=== PATIENT | female | born 1990 | race Caucasian/White ===

== ENCOUNTER → 2016-04-30 | Outpatient (CLI) | payer OTHER ==
[2016-04-30 12:22] LABS: HEMATOCRIT 37.4 % (37.0-47.0); HEMOGLOBIN 12.4 g/dL (12.0-16.0); MEAN CORPUSCULAR HGB CONC 33.2 g/dL (33-37); MEAN PLATELET VOLUME 9.8 FL (7.4-12.2); RDW COEFFICIENT OF VARIATION 13.7 % (11.5-14.5); RED BLOOD COUNT 4.27 10^6/uL (4.20-5.40); WHITE BLOOD COUNT 7.89 10^3/uL (4.8-10.8)
== END ==
LOC: LAB 10:49
PROVIDERS: ATTEND Obstetrics & Gynecology
DX: Z36 Encounter for antenatal screening of mother (principal); Z3A.29 29 weeks gestation of pregnancy
CPT/HCPCS: 36415; 82950; 85027

== ENCOUNTER 2016-06-02 15:43 | Outpatient (CLI) | payer OTHER ==
[2016-06-02 17:48] VITALS: RESP 20; TEMP 97.8
== END 2016-06-02 16:05 | disposition home or self-care (01) ==
LOC: OBOP 15:43
PROVIDERS: ATTEND Obstetrics & Gynecology
DX: O76 Abnormality in fetal heart rate and rhythm complicating labor and delivery (principal); Z3A.34 34 weeks gestation of pregnancy
CPT/HCPCS: 59025; 99211

== ENCOUNTER → 2016-06-12 | Outpatient (CLI) | payer OTHER | LOC: MOB LAB 16:03 | PROVIDERS: ATTEND Obstetrics & Gynecology | DX: Z36 Encounter for antenatal screening of mother (principal); Z3A.35 35 weeks gestation of pregnancy | CPT/HCPCS: 87150 ==

== ENCOUNTER 2016-07-13 15:16 | Outpatient (CLI) | payer OTHER ==
[2016-07-13] MEDS ORDERED: NORMAL SALINE 10 ML SYRINGE FLUSH IVP PRN (15:36)
[2016-07-13 15:48] VITALS: RESP 18; TEMP 98.2
--- NOTE | 2016-07-13 17:32 | DI ---
US OB , LIMITED,07/13/2016 3:39 PM: Clinical History: Decreased movement. Previous Exam: None at this facility. Findings: Multiple grayscale and color Doppler sonographic images are obtained through the pelvis, and demonstr ate a single live intrauterine gestation in vertex presentation. Amniotic fluid level is normal (14.3 cm). Detected Doppler heart tones measure 134 beats per minute. There is normal movement and stomach and urinary bladder appear normal. Impression: Single live intrauterine gestation with normal amniotic fluid index.
== END 2016-07-13 16:49 | disposition home or self-care (01) ==
LOC: OBOP 15:16
PROVIDERS: ATTEND Obstetrics & Gynecology
DX: O36.8130 Decreased fetal movements, third trimester, not applicable or unspecified (principal); Z3A.40 40 weeks gestation of pregnancy
CPT/HCPCS: 59025; 76815; 81003; 99211

== ENCOUNTER 2016-07-16 11:11 | Outpatient (CLI) | payer OTHER ==
[2016-07-16 11:48] VITALS: RESP 16; TEMP 97.5
--- NOTE | 2016-07-20 13:44 | PDOC(PROG) ---
Intake - - Reason for Visit/Chief Complaint: NST, Decreased Movement Admitted From: Home - Estimated Due Date: 07/12/16 Gestational Age in Weeks and Days: 41 Weeks and 1 Days : 3 Para: 1 Term Births: 1 Births: 0 Number of Abortions (Spont./Elective): 0 Living Children: 2 - Labs Blood Type and Rh: O+ Hepatitis B Surface Antigen: Absent HIV: Negative Rubella Status: Immune VDRL/RPR: Absent Maternal - Vital Signs Last Taken Vital Signs: Vital Signs - Last Taken Temperature 97.5 F 07/16/16 11:47 Pulse Rate 90 07/16/16 11:47 Respiratory Rate 16 07/16/16 11:47 Blood Pressure 127/84 07/16/16 11:47 Pulse Ox 98 07/16/16 11:47 - Uterine Activity Uterine Contraction Monitor Mode: External Contraction Frequency(minutes): 3 Contraction Duration (seconds): 60 Uterine Contraction Pattern: Irregular - Vaginal Discharge Vaginal Bleeding Amount: None Vaginal Discharge Amount: None Monitoring - Uterine Activity Uterine Contraction Monitor Mode: External Contraction Frequency(minutes): 3 Contraction Duration (seconds): 60 Uterine Contraction Pattern: Irregular Assessment and Plan - Assessment / Plan Additional Assessment/Plan Details: IUP 40 and a half weeks with decreased movement earlier in the week. The patient states the baby is moving better now. No leak of fluid. No bleeding. Occasional contractions. Reactive nonstress test. The patient was offered induction of labor but patient declined. The plan was for the patient to have a nonstress test at 41 weeks and then induction of labor at 41-1/7 week since there are ready is an induction of labor for another patient on 07/19/2016. Patient expressed understanding. kick counts and labor precautions discussed with patient.
== END 2016-07-16 12:04 | disposition home or self-care (01) ==
LOC: OBOP 11:11
PROVIDERS: ATTEND Obstetrics & Gynecology
DX: O36.8130 Decreased fetal movements, third trimester, not applicable or unspecified (principal); Z3A.40 40 weeks gestation of pregnancy
CPT/HCPCS: 59025; 99211

== ENCOUNTER → 2016-07-17 | Outpatient (CLI) | payer OTHER | LOC: MOB LAB 16:20 | PROVIDERS: ATTEND Obstetrics & Gynecology | DX: Z36 Encounter for antenatal screening of mother (principal); Z3A.40 40 weeks gestation of pregnancy | CPT/HCPCS: 87150 ==

== ENCOUNTER 2016-07-19 12:27 | Outpatient (CLI) | payer OTHER ==
[2016-07-19] MEDS ORDERED: NORMAL SALINE 10 ML SYRINGE FLUSH IVP PRN (12:31)
[2016-07-19 13:17] VITALS: RESP 18; TEMP 98.8
--- NOTE | 2016-07-19 14:16 | PDOC(PROG) ---
Intake - - Reason for Visit/Chief Complaint: NST Additional Reason(s) for Visit: post dates Admitted From: Home - Estimated Due Date: 07/12/16 Gestational Age in Weeks and Days: 41 Weeks and 0 Days : 3 Para: 1 Term Births: 1 Births: 0 Number of Abortions (Spont./Elective): 0 Living Children: 2 - Labs Blood Type and Rh: O+ Group B Strep: Negative Hepatitis B Surface Antigen: Absent HIV: Negative Rubella Status: Immune VDRL/RPR: Absent Maternal - Vital Signs Last Taken Vital Signs: Vital Signs - Last Taken Temperature 98.8 F 07/19/16 13:07 Pulse Rate 92 07/19/16 13:33 Respiratory Rate 18 07/19/16 13:33 Blood Pressure 129/79 07/19/16 13:33 Pulse Ox 99 07/19/16 13:33 - Uterine Activity Uterine Contraction Monitor Mode: External Contraction Frequency(minutes): irritable Uterine Tone Measurement Phase: Resting Uterine Contraction Intensity: Mild - Vaginal Discharge Vaginal Bleeding Amount: None Vaginal Discharge Amount: None Monitoring - Uterine Activity Uterine Contraction Monitor Mode: External Contraction Frequency(minutes): irritable Uterine Tone Measurement Phase: Resting Uterine Contraction Intensity: Mild Results - Bedside Testing Bedside Urine Ketone: Negative Bedside Urine Leukocytes Esterase: Negative Bedside Urine Nitrite: Negative Bedside Urine Occult Blood: Negative Bedside Urine Protein: Negative Bedside Specific [place]: 1.030 Assessment and Plan - Assessment / Plan Additional Assessment/Plan Details: The patient presented today to labor and delivery upon my request since the patient has an IUP at 41 weeks gestation today. Nonstress test was ordered. JOSEP was completed last week and was normal. Patient feels well. No headaches, no right upper quadrant pain, no back pain. Occasional contraction. Positive movement. The patient states that her baby has been moving well. The patient is now ready for induction of labor. Objective: Reactive nonstress test Blood pressure was normal with several blood pressures even after walking. Cervix was 2+/50/-3 cephalic presentation Assessment: IUP 41 weeks gestation today. Reactive nonstress test, repeat group B strep was negative, blood pressure was normal. Patient states baby is moving well. Plan: Patient will undergo induction of labor with cervical ripening. However, this cannot be started until tomorrow since labor and delivery has a scheduled induction of labor today for a different patient with intrauterine growth restriction Strict precautions with kick counts and labor precautions and SROM precautions Patient will see me tomorrow at 1300 hrs. for appointment and then we will finalize the induction schedule. The patient did not have any questions today. Her mother did not have any questions today.-The patient's mother.
== END 2016-07-19 14:12 | disposition home or self-care (01) ==
LOC: OBOP 12:27
PROVIDERS: ATTEND Obstetrics & Gynecology
DX: O48.1 Prolonged pregnancy (principal); Z3A.41 41 weeks gestation of pregnancy
CPT/HCPCS: 59025; 81003; 99211

== ENCOUNTER 2016-07-20 14:28 | Inpatient (IN) | payer OTHER ==
[2016-07-20] MEDS ORDERED: fentaNYL Inj 100 MCG/2 ML VIAL IV PRN (14:47)
[2016-07-20] MEDS ORDERED: Naloxone Inj 0.01 MG in Normal Saline Flush 1 ML IVP PRN (14:47)
[2016-07-20] MEDS ORDERED: TERBUTALINE SULFATE 1 MG/1 ML SDV SUBCUT PRN (14:47)
[2016-07-20] MEDS ORDERED: CITRIC ACID/SODIUM CITRATE 30 ML CUP PO PRN (14:47)
[2016-07-20] MEDS ORDERED: LIDOCAINE W/ SODIUM BICARB 0.5 ML SYR SUBD PRN (14:47)
[2016-07-20] MEDS ORDERED: Carboprost Inj 250 MCG/ML AMP IM PRN ×2 (14:47→23:29)
[2016-07-20] MEDS ORDERED: CALCIUM CARBONATE 500 MG (TUMS) CHEWABLE TABLET PO PRN ×2 (14:47→23:29)
[2016-07-20] MEDS ORDERED: NALOXONE 0.4 MG/1 ML VIAL IVP PRN (14:47)
[2016-07-20] MEDS ORDERED: ePHEDrine Inj 5 MG in Normal Saline Flush 1 ML IVP PRN (14:47)
[2016-07-20] MEDS ORDERED: ONDANSETRON 4 MG/2 ML VIAL IVP PRN ×2 (14:47→23:29)
[2016-07-20] MEDS ORDERED: Famotidine Inj 20 MG in Normal Saline Flush 10 ML IVP PRN ×4 (14:47)
[2016-07-20] MEDS ORDERED: Metoclopramide Inj 10 MG/2 ML VIAL IV PRN (14:47)
[2016-07-20] MEDS ORDERED: METHYLERGONOVINE MALEATE 0.2 MG/1 ML VIAL IM PRN ×2 (14:47→23:29)
[2016-07-20] MEDS ORDERED: CefOXitin Inj 2 GM in Sodium Chloride 0.9% 100 ML IV PRN (14:47)
[2016-07-20] MEDS ORDERED: Phenylephrine Inj 50 MCG in Normal Saline Flush 0.5 ML IVP PRN (14:47)
[2016-07-20] MEDS ORDERED: NORMAL SALINE 10 ML SYRINGE FLUSH IVP PRN ×2 (14:47→23:29)
[2016-07-20] MEDS ORDERED: Lidocaine 1% 10 MG/ML - 20 ML VIAL SUBCUT PRN (14:47)
[2016-07-20] MEDS ORDERED: diphenhydrAMINE 50 MG/1 ML VIAL IVP PRN ×2 (14:47→23:29)
[2016-07-20] MEDS ORDERED: MISOPROSTOL 200 MCG TABLET RECTAL PRN (14:47)
[2016-07-20] MEDS ORDERED: Nalbuphine Inj 20 MG/ML Ampule IVP PRN ×2 (14:47→23:29)
[2016-07-20] MEDS ORDERED: BUTORPHANOL TARTRATE 2 MG/1 ML VIAL IVP PRN (14:47)
[2016-07-20] MEDS ORDERED: Oxytocin 20 Units + LR 1,000 ML IV SCH ×3 (15:00→23:29)
[2016-07-20] MEDS: Lactated Ringers-OB Dept 1,000 ML PRIMARY IV SCH ×2 (15:15→17:28)
[2016-07-20 15:38] LABS: HEMATOCRIT 40.4 % (37.0-47.0); HEMOGLOBIN 13.8 g/dL (12.0-16.0); MEAN CORPUSCULAR HEMOGLOBIN 29.1 PG (27-31); MEAN CORPUSCULAR HGB CONC 34.2 g/dL (33-37); MEAN CORPUSCULAR VOLUME 85.2 FL (81-99); MEAN PLATELET VOLUME 10.7 FL (7.4-12.2); RED BLOOD COUNT 4.74 10^6/uL (4.20-5.40)
--- NOTE | 2016-07-20 16:48 | OB.PROGRES ---
Interval History: The patient presents for her induction. The patient is a 25-year-old at 41-1/7 week. The patient has had essentially an uncomplicated . Group B strep was negative. Placenta is posterior by ultrasound. The patient had some contractions last night and early this morning which did help change her cervix. Her cervix in clinic today was 3/80/-2 and cephalic. Positive movement, no leak of fluid, no bleeding. The patient does have a history of depression at age 18. The patient believes she was on Prozac. The patient had minimal suicidal thoughts but no suicide plan and never thought about acting on it but the patient says she was 18 and depressed. Past medical history noncontributory except obesity with a BMI of 39 Surgical history noncontributory No known drug allergies Tobacco-quit in 2012 when she found out she was with her first . No alcohol or drugs. Current medications multivitamin daily Previous pregnancies significant for vaginal delivery 2 with the largest being 7 lbs. 11 oz. Her first delivery was 6 lbs. 11 oz. the patient believes this baby is bigger than her last 2. Menarche was age 14. Normal Pap smear, no STI history. Objective - Cervical Exam Cervical Exam: 3/80/-2 [place]: Contractions every 3-5 minutes Heart Rate Interpretation Category: Category I - Labs CBC and BMP: 07/20/16 15:26 Labs - Last 24 Hours: Laboratory Results 07/20/16 Range/Units 15:26 WBC 9.43 (4.8-10.8) 10^3/uL RBC 4.74 (4.20-5.40) 10^6/uL Hgb 13.8 (12.0-16.0) g/dL Hct 40.4 (37.0-47.0) % MCV 85.2 (81-99) FL MCH 29.1 (27-31) PG MCHC 34.2 (33-37) g/dL RDW Std Deviation 43.0 (39-50) fL RDW Coeff of Kristan 14.1 (11.5-14.5) % Plt Count 234 (140-350) 10*3/uL MPV 10.7 (7.4-12.2) FL - Vital Signs Last Taken Vital Signs: Vital Signs - Last Taken Temperature 97.6 F 05/22/17 15:40 Pulse Rate 92 07/20/16 15:40 Respiratory Rate 18 07/20/16 15:40 Blood Pressure 122/74 07/20/16 15:40 Pulse Ox 96 07/20/16 15:40 Assessment and Plan - Assessment / Plan Additional Assessment/Plan Details: Assessment: IUP 41 and one sevenths weeks Group B strep negative Recent latent labor Rh- Plan: Patient admitted for augmentation of contractions. Patient does desire epidural We have briefly discussed for nonreassuring status or arrest of dilation or descent. Shoulder dystocia was discussed previously. Continue to observe the patient closely.
--- NOTE | 2016-07-20 17:05 | OB.PROGRES ---
Interval History: Patient can feel contractions now the Pitocin was started. Objective - Cervical Exam Cervical Exam: 3-4/80/-2 cephalic [place]: Contractions every 3-5 minutes Heart Rate Interpretation Category: Category I - Labs CBC and BMP: 07/20/16 15:26 Labs - Last 24 Hours: Laboratory Results 07/20/16 Range/Units 15:26 WBC 9.43 (4.8-10.8) 10^3/uL RBC 4.74 (4.20-5.40) 10^6/uL Hgb 13.8 (12.0-16.0) g/dL Hct 40.4 (37.0-47.0) % MCV 85.2 (81-99) FL MCH 29.1 (27-31) PG MCHC 34.2 (33-37) g/dL RDW Std Deviation 43.0 (39-50) fL RDW Coeff of Kristan 14.1 (11.5-14.5) % Plt Count 234 (140-350) 10*3/uL MPV 10.7 (7.4-12.2) FL - Vital Signs Last Taken Vital Signs: Vital Signs - Last Taken Temperature 97.6 F 07/20/16 15:40 Pulse Rate 92 07/20/16 15:40 Respiratory Rate 18 07/20/16 15:40 Blood Pressure 122/74 07/20/16 15:40 Pulse Ox 96 07/20/16 15:40 Assessment and Plan - Assessment / Plan Additional Assessment/Plan Details: Assessment: IUP 41-1/ week, GBS negative, Rh-, Patient can feel contractions with Pitocin augmentation. Plan: I offered patient epidural and then AROM versus Pitocin augmentation and then turning Pitocin off around 2000 hrs. to 2100 hrs. and then determining what the patient would do spontaneously. The patient is considering her options. Continue care. Currently Pitocin is at 4 milliunits.
[2016-07-20] MEDS ORDERED: Fent/Bupiv 2mcg/0.0625% Epid 250 ML ONE (17:57)
--- NOTE | 2016-07-20 19:02 | CRNA.PROCE ---
Central Neuraxis Block Placemt - - Safety Measures: Time Out Taken, Site Verified - - Type of Block: Epidural Reason for Block: Analgesia Moniters Used During Block: SPO2, NIBP Positioning: Sitting Skin Prep Used: Betadine Draped: Yes Skin Infiltration - Enter Amount Used in Comment Field: 1% Xylocaine (mL): Yes ( skin wheal L4-5) Introducer User: 18 Gauge Hustead Local Anesthetic - Enter Amount Used in Comment Field: 1.5 % Xylocaine with Epinephrine 1:200,000 (mL): Yes (5ml Neg) Bioclusive Dressing Applied: Yes - - Additional Details: Wishes epidural for EBER. Reviewed risks and benefits, wishes to proceed. History obtained and chart reviewed. Monitors, sitting, landmarks id'd, betadine prep, drape, skin wheal and crisp MARTHA to saline first pass at L4-5, cath easily 4cm. 5ml test negative. Cath secured. PCEA started Laboratory Results 07/20/16 Range/Units 15:26 WBC 9.43 (4.8-10.8) 10^3/uL RBC 4.74 (4.20-5.40) 10^6/uL Hgb 13.8 (12.0-16.0) g/dL Hct 40.4 (37.0-47.0) % MCV 85.2 (81-99) FL MCH 29.1 (27-31) PG MCHC 34.2 (33-37) g/dL RDW Std Deviation 43.0 (39-50) fL RDW Coeff of Kristan 14.1 (11.5-14.5) % Plt Count 234 (140-350) 10*3/uL MPV 10.7 (7.4-12.2) FL Vital Signs (72 hrs) Temp Pulse Resp BP Pulse Ox 07/20/16 17:30 129/86 07/20/16 15:40 97.6 F 92 18 122/74 96 07/20/16 15:38 97 07/20/16 15:10 97.6 F 102 H 18 122/74 99
[2016-07-20] MEDS ORDERED: fentaNYL 2 MCG/BUPIVACAINE 0.0625%/NS 0.9% 250 ML BAG EPIDURAL SCH (19:15)
--- NOTE | 2016-07-20 19:33 | OB.PROGRES ---
Interval History: The patient received her epidural and the epidural was working well. The patient would like AROM. Objective - Cervical Exam Cervical Exam: 5/c/-2 cephalic [place]: Contractions every 1-3 minutes on 4 milliunits Pitocin. AROM with copious amounts of clear fluid. No evidence of cord prolapse. heart rate tolerated AROM well. Heart Rate Interpretation Category: Category I - Labs CBC and BMP: 07/20/16 15:26 Labs - Last 24 Hours: Laboratory Results 07/20/16 Range/Units 15:26 WBC 9.43 (4.8-10.8) 10^3/uL RBC 4.74 (4.20-5.40) 10^6/uL Hgb 13.8 (12.0-16.0) g/dL Hct 40.4 (37.0-47.0) % MCV 85.2 (81-99) FL MCH 29.1 (27-31) PG MCHC 34.2 (33-37) g/dL RDW Std Deviation 43.0 (39-50) fL RDW Coeff of Kristan 14.1 (11.5-14.5) % Plt Count 234 (140-350) 10*3/uL MPV 10.7 (7.4-12.2) FL - Vital Signs Last Taken Vital Signs: Vital Signs - Last Taken Temperature 97.6 F 07/20/16 15:40 Pulse Rate 92 07/20/16 15:40 Respiratory Rate 18 07/20/16 15:40 Blood Pressure 129/86 07/20/16 17:30 Pulse Ox 96 07/20/16 15:40 Assessment and Plan - Assessment / Plan Additional Assessment/Plan Details: Assessment: IUP 41-03/07 week with AROM with clear fluid. Pitocin at 2 milliunits Pitocin currently after decreasing from 4 milliunits to 2 milliunits after AROM. GBS negative 2 different swabs several weeks apart. Rh+ Plan: Continued to assess patient closely. Expectant management.
--- NOTE | 2016-07-20 19:49 | OB.PROGRES ---
Interval History: The patient is comfortable. Perhaps slight pelvic pressure. Objective - Cervical Exam Cervical Exam: 5/c/-2 cephalic [place]: Every 4 minutes or so Heart Rate Interpretation Category: Category I - Labs CBC and BMP: 07/20/16 15:26 Labs - Last 24 Hours: Laboratory Results 07/20/16 Range/Units 15:26 WBC 9.43 (4.8-10.8) 10^3/uL RBC 4.74 (4.20-5.40) 10^6/uL Hgb 13.8 (12.0-16.0) g/dL Hct 40.4 (37.0-47.0) % MCV 85.2 (81-99) FL MCH 29.1 (27-31) PG MCHC 34.2 (33-37) g/dL RDW Std Deviation 43.0 (39-50) fL RDW Coeff of Kristan 14.1 (11.5-14.5) % Plt Count 234 (140-350) 10*3/uL MPV 10.7 (7.4-12.2) FL - Vital Signs Last Taken Vital Signs: Vital Signs - Last Taken Temperature 97.6 F 07/20/16 15:40 Pulse Rate 88 07/20/16 18:30 Respiratory Rate 18 07/20/16 15:40 Blood Pressure 112/73 07/20/16 18:30 Pulse Ox 97 07/20/16 18:30 Assessment and Plan - Assessment / Plan Additional Assessment/Plan Details: Assessment: IUP 41 and one sevenths weeks with AROM with clear fluid. GBS negative. Rh+. No significant cervical change currently. Plan: Increase Pitocin to 3 milliunits currently. Continue to observe closely. Expectant management.
--- NOTE | 2016-07-20 22:10 | OB.DEL.SUM ---
Delivery Note Delivery Summary: I was called by the labor and delivery nurses when they checked the patient and the patient was complete/complete/+1 station I presented to labor and delivery and the patient's exam was then c/c/+2 station Secondary to the patient's epidural, the patient had an urge to push but did not need to push. The labor and delivery bed was configured into the birthing bed. The patient started to push and with a series of 4 or 5 pushes, the baby's head delivered. A nuchal cord 1 was palpated and it was tight. I tried to clamp and cut the nuchal cord but the patient continued to push and the baby was delivered atraumatically. The cord was clamped and cut. The baby was placed on the mother's chest. The mouth and nose were bulb suctioned even while the baby was being delivered with the mother pushing. A cord gas was obtained. Cord blood was obtained. The placenta then delivered with the patient pushing gently. The placenta was examined and the placenta was intact. There were a few skid renteria and I repaired a periurethral tear on the patient's right side with 3-0 Vicryl Rapide suture times 3 interrupted sutures that were superficial. One more skid nj at 6:00 in the vagina was repaired with one [id number] suture of 3-0 Vicryl Rapide suture. There was minimal bleeding. A rectal exam was completed and there was no buttonhole fourth degree laceration noted. Sponge lap and needle counts were correct 2. Findings were a male infant with Apgars 8 and 10. Weight was 8 pounds 1.1 ounce. ABG showed a pH of 7.250, PCO2 of 55.5, HCO3 of 24.3, base excess of -3. EBL was 350 mL. The patient was hemostatic at the completion of the delivery and repair. The patient and baby would recover in the delivery room initially and then a room.
[2016-07-20] MEDS ORDERED: BENZOCAINE/MENTHOL SPRAY 56 GM BOTTLE TOPICAL PRN (23:29)
[2016-07-20] MEDS ORDERED: MISOPROSTOL 200 MCG TABLET RECTAL ONE (23:29)
[2016-07-20] MEDS ORDERED: ACETAMINOPHEN 325 MG TABLET PO PRN (23:29)
[2016-07-20] MEDS ORDERED: GLYCERIN/WITCH HAZEL 1 BOX TOPICAL PRN (23:29)
[2016-07-20] MEDS ORDERED: LANOLIN HPA 40 GM TUBE TOPICAL PRN (23:29)
[2016-07-20] MEDS ORDERED: Ondansetron ODT Tab 4 MG TAB PO PRN (23:29)
[2016-07-20] MEDS ORDERED: HYDROcodone-APAP 5 MG -325 MG TABLET PO PRN (23:29)
[2016-07-20] MEDS ORDERED: diphenhydrAMINE 25 MG CAPSULE PO PRN (23:29)
[2016-07-20] MEDS ORDERED: Methylergonovine Tab 0.2 MG TAB PO PRN (23:29)
[2016-07-20] MEDS ORDERED: IBUPROFEN 800 MG TABLET PO PRN (23:29)
[2016-07-20] MEDS ORDERED: OXYTOCIN 10 UNIT/1 ML IM ONE (23:29)
[2016-07-20] MEDS ORDERED: DIPH,PERTUSS,TET(ADACEL) VAC/PF 0.5 ML (Tdap) IM SCH (23:29)
[2016-07-21] MEDS: Lactated Ringers-OB Dept 1,000 ML PRIMARY IV SCH (01:13)
[2016-07-21 04:40] LABS: HEMATOCRIT 37.5 % (37.0-47.0); HEMOGLOBIN 12.9 g/dL (12.0-16.0); MEAN CORPUSCULAR HEMOGLOBIN 29.6 PG (27-31); MEAN CORPUSCULAR HGB CONC 34.4 g/dL (33-37); MEAN PLATELET VOLUME 10.7 FL (7.4-12.2); RED BLOOD COUNT 4.36 10^6/uL (4.20-5.40)
[2016-07-21] MEDS: DOCUSATE 100 MG CAPSULE PO SCH ×2 (08:29→20:56)
[2016-07-21] MEDS ORDERED: Prenatal Multivitamin Tab 1 TAB TAB PO SCH (09:00)
--- NOTE | 2016-07-21 09:16 | CRNA.PROGR ---
Anesthesia Note Anesthesia Progress Note: Sitting up in bed visiting with family. Has been ambulatory ad tej. Epidural cath dc'd previously by OB RN intact. She no questions or concerns regarding her anesthetic course at this time. Laboratory Results 07/20/16 07/21/16 Range/Units 15:26 04:30 WBC 9.43 14.31 H (4.8-10.8) 10^3/uL RBC 4.74 4.36 (4.20-5.40) 10^6/uL Hgb 13.8 12.9 (12.0-16.0) g/dL Hct 40.4 37.5 (37.0-47.0) % MCV 85.2 86.0 (81-99) FL MCH 29.1 29.6 (27-31) PG MCHC 34.2 34.4 (33-37) g/dL RDW Std Deviation 43.0 42.7 (39-50) fL RDW Coeff of Kristan 14.1 13.9 (11.5-14.5) % Plt Count 234 175 (140-350) 10*3/uL MPV 10.7 10.7 (7.4-12.2) FL
--- NOTE | 2016-07-21 12:16 | OB.PROGRES ---
Subjective Post Day: 1 Pain Management: PO (Not really taking ibuprofen or narcotic for uterine cramping.) Gallegos Catheter: No Flatus: Yes Diet: Regular [place] Feeding Method: Exculsively Ambulating: Yes Concerns / Additional Information: Patient feels well. Objective - General General Appearance: POSITIVE: No Acute Distress - Cardiovacular Cardiovascular Exam: POSITIVE: RRR Edema: +1 Pedal Edema Extremities: Negative Ricarda's - Bilaterally - Respiratory Respiratory Exam: POSITIVE: Clear to Auscultation - Bilaterally - Fundus/Lochia/Perineum Uterus Position: POSITIVE: At Umbilicus (Firm with massage) Assesstment / Plan Assessment / Plan: Assessment: day #1 status post and repair of small vaginal lacerations. The patient is doing well. The patient's day #1 H&H is good. Plan: The patient will stay until tomorrow currently. If she changes her mind, the patient will let me know. Patient had a delivery late last evening. No iron secondary to her H&H. I encouraged the patient's take ibuprofen regularly for the first several days. Continue observation and care.
--- NOTE | 2016-07-22 10:04 | OB.PROGRES ---
Subjective Post Day: 2 Pain Management: PO Gallegos Catheter: No Flatus: Yes Diet: Regular [place] Feeding Method: Exculsively Ambulating: Yes Concerns / Additional Information: The patient is ready for discharge home. Taking ibuprofen occasionally. Would like a prescription for home. Objective - General General Appearance: POSITIVE: No Acute Distress - Cardiovacular Cardiovascular Exam: POSITIVE: RRR Edema: +1 Pedal Edema Extremities: Negative Ricarda's - Bilaterally - Respiratory Respiratory Exam: POSITIVE: Clear to Auscultation - Bilaterally - Fundus/Lochia/Perineum Uterus Consistency: Firm (Nontender) Uterus Position: POSITIVE: At Umbilicus (Nontender) Assesstment / Plan Assessment / Plan: Assessment: day #2 status post and repair of first-degree vaginal lacerations. Patient doing very well. Breast-feeding. Baby doing well. Plan: Discharge home today Usual precautions Ibuprofen 800 mg 1 tablet by mouth 3 times a day with food or milk as needed Patient declined stool softener Patient should continue multivitamin or vitamin daily. All woman of childbearing years should be on a multivitamin daily. I explained this to the patient. This helps prevent neural tube defects. Return to clinic in 6 weeks for checkup. I discussed contraception the patient is not sure about contraception. We will discuss contraception at her 6 week visit. Patient expressed understanding.
[2016-07-22 12:02] VITALS: RESP 18; TEMP 98.5
== END 2016-07-22 11:40 | disposition home or self-care (01) | DRG 775 ==
LOC: OBIP 14:28
PROVIDERS: ADMIT Obstetrics & Gynecology; ATTEND Obstetrics & Gynecology
PROC: 10E0XZZ Delivery of Products of Conception, External Approach (ICD-10-PCS; principal; 2016-07-20)
PROC: 0HQ9XZZ Repair Perineum Skin, External Approach (ICD-10-PCS; 2016-07-20)
DX: O71.5 Other obstetric injury to pelvic organs (principal); Z3A.41 41 weeks gestation of pregnancy; Z37.0 Single live birth
CPT/HCPCS: 36415; 85027; J2210; J3490; J7120